=== PATIENT | female | born 1955 | race Caucasian/White ===

== ENCOUNTER 2017-05-18 17:32 | Emergency (ER) | payer BC ==
[~2017-05-18] VITALS: Ht 162.6 cm; Wt 74.0 kg
[2017-05-18] MEDS ORDERED: NAPROSYN500 MG PO (19:30)
[2017-05-18 20:09] VITALS: BP 128/84
== END 2017-05-18 19:30 | disposition home or self-care (01) ==
LOC: EME 17:32
DX: S93.401A Sprain of unspecified ligament of right ankle, initial encounter (principal); S93.601A Unspecified sprain of right foot, initial encounter; X50.9XXA Other and unspecified overexertion or strenuous movements or postures, initial encounter
CPT/HCPCS: 73610; 73630; 99281; 99284